=== PATIENT | male | born 1965 | race Two or more races ===

== ENCOUNTER 2016-07-18 14:50 | Emergency (ER) | payer OTHER ==
[2016-07-18 14:54] VITALS: PULSE 81; TEMP 98; BMI 27.6
[2016-07-18] MEDS ORDERED: diazePAM 2 MG TABLET PO ONE (16:07)
[2016-07-18] MEDS ORDERED: MECLIZINE HCL 25 MG TABLET (FP) PO ONE (16:07)
[2016-07-18] MEDS ORDERED: MECLIZINE HCL 25 MG TABLET (FP) ONE (16:11)
[2016-07-18] MEDS ORDERED: diazePAM 2 MG TABLET ONE (16:11)
[2016-07-18 16:48] LABS: BASOPHIL 0.6 % (0-2.0); EOSINOPHIL 0.3 % (0-4.5); MCH 30.4 pg (25.7-33.7); MCHC 33.7 g/dl (32.0-35.9); MEAN CELL VOLUME 90.3 fl (80-96); NEUTROPHILS 82.9 % (42.8-82.8); PLATELET COUNT 288 K/MM3 (134-434); RDW 13.3 % (11.9-15.9); WHITE BLOOD COUNT 13.3 K/mm3 (4.0-10.0)
[2016-07-18 17:00] LABS: INR 1.07 (0.82-1.09); PROTHROMBIN TIME (PATIENT) 11.8 SEC (9.98-11.88)
[2016-07-18 17:18] LABS: ANION GAP 11 (8-16); BILIRUBIN,TOTAL 0.3 mg/dL (0.2-1.0); CALCIUM 8.9 mg/dL (8.5-10.1); CO2 29 mmol/L (21-32); CREATININE 1.2 mg/dL (0.7-1.3); GLUCOSE,RANDOM 98 mg/dL (74-106); SGOT/AST 22 U/L (15-37); SGPT/ALT 45 U/L (12-78); TOT PROT 7.5 g/dl (6.4-8.2)
--- NOTE | 2016-07-18 17:18 | PDOC ---
History of Present Illness - General History Source: Patient Exam Limitations: No Limitations - History of Present Illness Initial Comments: 07/18/16 17:18 Patient is a 51-year-old male with no significant medical history who presents to the ED with dizziness since today. Patient notes that he was at the gym today training as he started to experiencing dizziness as he describes his head was spinning. He notes that he felt as if he was about to faint. He notes that he had a cold for a couple of days but denies any fever. He states that the people at gym called EMS. He notes that his dizziness is alleviated by lying down. He states that he has been experiencing chills and nausea. answerer [id number] used to obtain HPI. <Davida Mathis - Last Filed: 07/18/16 18:47> <Castro Cabrera - Last Filed: 07/18/16 18:56> - General Chief Complaint: Lightheaded Stated Complaint: DIZZINESS Past History <Davida Mathis - Last Filed: 07/18/16 18:47> - Psycho/Social/Smoking Cessation Hx Anxiety: No Suicidal Ideation: No Smoking History: Never smoked Have you smoked in the past 12 months: No Hx Alcohol Use: No Drug/Substance Use Hx: No Substance Use Type: None <Castro Cabrera - Last Filed: 07/18/16 18:56> - Past Medical History Allergies/Adverse Reactions: Allergies Allergy/AdvReac Type Severity Reaction Status Date / Time No Known Allergies Allergy Verified 07/18/16 14:52 Home Medications: Ambulatory Orders Meclizine HCl [Antivert -] 25 mg PO QID #28 tablet 07/18/16 Review of Systems - Review of Systems Able to Perform ROS?: Yes Comments:: 07/18/16 17:19 GENERAL/CONSTITUTIONAL: No fever or chills. No weakness. HEAD, EYES, EARS, NOSE AND THROAT: No change in vision. No ear pain or discharge. No sore throat. CARDIOVASCULAR: No chest pain or shortness of breath. RESPIRATORY: No cough, wheezing, or hemoptysis. GASTROINTESTINAL: +nausea. No vomiting, diarrhea or constipation. GENITOURINARY: No dysuria, frequency, or change in urination. MUSCULOSKELETAL: No joint or muscle swelling or pain. No neck or back pain. SKIN: No rash NEUROLOGIC: +dizziness. No headache, vertigo, loss of consciousness, or change in strength/sensation. ENDOCRINE: No increased thirst. No abnormal weight change. HEMATOLOGIC/LYMPHATIC: No anemia, easy bleeding, or history of blood clots. ALLERGIC/IMMUNOLOGIC: No hives or skin allergy. <Davida Mathis - Last Filed: 07/18/16 18:47> *Physical Exam - Vital Signs Last Vital Signs Temp Pulse Resp BP Pulse Ox 98.0 F 81 18 104/80 100 07/18/16 14:53 07/18/16 14:53 07/18/16 14:53 07/18/16 14:53 07/18/16 14:53 - Physical Exam Comments: 07/18/16 17:20 GENERAL: Awake, alert, and fully oriented, in no acute distress HEAD: No signs of trauma EYES: PERRLA, EOMI, sclera anicteric, conjunctiva clear ENT: Auricles normal inspection, hearing grossly normal, nares patent, oropharynx clear without exudates. Moist mucosa NECK: Normal ROM, supple, no lymphadenopathy, JVD, or masses LUNGS: Breath sounds equal, clear to auscultation bilaterally. No wheezes, and no crackles HEART: Regular rate and rhythm, normal S1 and S2, no murmurs, rubs or gallops ABDOMEN: Soft, nontender, normoactive bowel sounds. No guarding, no rebound. No masses EXTREMITIES: Normal range of motion, no edema. No clubbing or cyanosis. No cords, erythema, or tenderness NEUROLOGICAL: Cranial nerves II through XII grossly intact. Normal speech, normal gait SKIN: Warm, Dry, normal turgor, no rashes or lesions noted. <Davida Mathis - Last Filed: 07/18/16 18:47> - Vital Signs Last Vital Signs Temp Pulse Resp BP Pulse Ox 98.0 F 81 18 104/80 100 07/18/16 14:53 07/18/16 14:53 07/18/16 14:53 07/18/16 14:53 07/18/16 14:53 <Castro Cabrera - Last Filed: 07/18/16 18:56> Heart Score/ECG Review #1 07/18/16 17:[address] Cabrera Impression: Normal sinus rhythm Incomplete right bundle branch block Normal EKG Vent rate 59 bpm <Davida Mathis - Last Filed: 07/18/16 18:47> ED Treatment Course - LABORATORY CBC & Chemistry Diagram: 07/18/16 16:09 07/18/16 16:09 - RADIOLOGY Radiology Studies Ordered: 07/18/16 18:47 EXAM#: TYPE/EXAM: RESULT: [id number] RAD/CHEST PA LAT The heart size is within normal limits. The lung de leon are free of pulmonary infiltrates or pleural effusions. There is tortuosity and calcification of the thoracic aorta and degenerative changes of the thoracic spine. IMPRESSION: No acute disease. - Medications Given in the ED: ED Medications Discontinued Medications Generic Name Dose Route Start Last Admin Trade Name Freq PRN Reason Stop Dose Admin Diazepam 2 mg 07/18/16 16:07 07/18/16 16:26 Valium - PO 07/18/16 16:08 2 mg ONCE ONE Administration Meclizine HCl 50 mg 07/18/16 16:07 07/18/16 16:26 Antivert - PO 07/18/16 16:08 50 mg ONCE ONE Administration <Davida Mathis - Last Filed: 07/18/16 18:47> - LABORATORY CBC & Chemistry Diagram: 07/18/16 16:09 07/18/16 16:09 - RADIOLOGY Radiology Studies Ordered: Category Date Time Status CHEST PA & LAT [RAD] Stat Radiology 07/18/16 16:07 Taken - Medications Given in the ED: ED Medications Discontinued Medications Generic Name Dose Route Start Last Admin Trade Name Freq PRN Reason Stop Dose Admin Diazepam 2 mg 07/18/16 16:07 07/18/16 16:26 Valium - PO 07/18/16 16:08 2 mg ONCE ONE Administration Meclizine HCl 50 mg 07/18/16 16:07 07/18/16 16:26 Antivert - PO 07/18/16 16:08 50 mg ONCE ONE Administration <Castro Cabrera - Last Filed: 07/18/16 18:56> Medical Decision Making - Medical Decision Making 07/18/16 17:18 Patient is a 51-year-old male with no significant medical history who presents to the ED with dizziness since today. Will order labs and imaging. Patient will be reassessed after the results are back. <Davida Mathis - Last Filed: 07/18/16 18:47> *DC/Admit/Observation/Transfer - Attestations Scribe Attestion: 07/18/16 17:21 Documentation prepared by WAQAS Duarte, acting as claim review medical director for Castro Cabrera MD/. <Davida Mathis - Last Filed: 07/18/16 18:47> - Attestations Physician Attestion: 07/18/16 17:18 I, Dr. Castro Cabrera, attest that this document has been prepared under my direction and personally reviewed by me in its entirety. I further attest, that it accurately reflects all work, treatment, procedures and medical decision -making performed by me. <Castro Cabrera - Last Filed: 07/18/16 18:56> Diagnosis at time of Disposition: Vertigo - Referrals Referrals: Kiran Bettencourt [Primary Care Provider] - - Patient Instructions Printed Discharge Instructions: DI for Vertigo, DI for Meniere's Disease Additional Instructions: Carlos- This is vertigo. Move your head and change positions carefully. Do not drive. Use the antivert(meclazine) to help with the spinning. Follow up with your regular doctor this week. Return to us if problems. Best- Dr. Castro Cabrera
[2016-07-18 17:20] LABS: ALK PHOS 72 U/L (45-117); TROPONIN I < 0.02 ng/ml (0.00-0.05)
[2016-07-18 17:29] VITALS: BP 131/88
--- NOTE | 2016-07-19 17:49 | EKG ---
Test Reason : Blood Pressure : / mmHG Vent. Rate : 091 BPM Atrial Rate : 091 BPM P-R Int : 152 ms QRS Dur : 102 ms QT Int : 354 ms P-R-T Axes : 042 -53 027 degrees QTc Int : 435 ms NORMAL SINUS RHYTHM POSSIBLE LEFT ATRIAL ENLARGEMENT LEFT AXIS DEVIATION INCOMPLETE RIGHT BUNDLE BRANCH BLOCK ABNORMAL ECG NO PREVIOUS ECGS AVAILABLE Confirmed by FARA VILLEGAS MD ([id number]) on 07/19/2016 5:48:46 PM Referred By: Confirmed By:FARA VILLEGAS MD
== END 2016-07-18 19:20 | disposition home or self-care (01) ==
LOC: JER 14:50
DX: R42 Dizziness and giddiness (principal)
CPT/HCPCS: 36415; 71020-TC; 80053; 82550; 82553; 84484; 85025; 85610; 93005; 93010; 99283-25

== ENCOUNTER 2016-09-08 16:08 | Emergency (ER) | payer OTHER ==
[2016-09-08 16:19] VITALS: BMI 27.9
--- NOTE | 2016-09-08 16:37 | PDOC ---
History of Present Illness <Castro Cabrera - Last Filed: 09/08/16 18:20> - History of Present Illness Initial Comments: 09/08/16 16:44 The patient is a 51 year old male with no past medical hx who presents to the ED complaining of vomiting and diarrhea for 2 days. He reports diffuse abdominal pain. The patients reports he is unable to keep any food down secondary to his symptoms. The patient reports he has not taken any OTC medications for his symptoms. The patient denies chest pain, SOB, fever, chills, dysuria <Marissa Duarte - Last Filed: 09/08/16 18:29> - General Chief Complaint: Vomiting/Diarrhea Stated Complaint: VOMITING/DIARRHEA Time Seen by Provider: 09/08/16 16:35 Past History - Past Medical History Other medical history: denies - Immunization History Immunization Up to Date: Yes - Psycho/Social/Smoking Cessation Hx Anxiety: No Suicidal Ideation: No Smoking History: Never smoked Have you smoked in the past 12 months: No Hx Alcohol Use: No Drug/Substance Use Hx: No Substance Use Type: None <Castro Cabrera - Last Filed: 09/08/16 18:20> <Marissa Duarte - Last Filed: 09/08/16 18:29> - Past Medical History Allergies/Adverse Reactions: Allergies Allergy/AdvReac Type Severity Reaction Status Date / Time No Known Allergies Allergy Verified 09/08/16 16:16 Home Medications: Ambulatory Orders Loperamide HCl [Imodium -] 2 mg PO BID #14 capsule 09/08/16 Loperamide HCl [Imodium A-D] 2 mg PO TID PRN #12 capsule 09/08/16 Ondansetron [Ondansetron Odt] 8 mg PO TID PRN #12 tab.rapdis 09/08/16 Ondansetron [Zofran Odt -] 4 mg SL TID #21 od.tablet 09/08/16 Review of Systems - Review of Systems Able to Perform ROS?: Yes Comments:: 09/08/16 16:44 GENERAL/CONSTITUTIONAL: No fever or chills. No weakness. HEAD, EYES, EARS, NOSE AND THROAT: No change in vision. No ear pain or discharge. No sore throat. CARDIOVASCULAR: No chest pain or shortness of breath. RESPIRATORY: No cough, wheezing, or hemoptysis. GASTROINTESTINAL: +Nausea, vomiting, diarrhea. No constipation. GENITOURINARY: No dysuria, frequency, or change in urination. MUSCULOSKELETAL: No joint or muscle swelling or pain. No neck or back pain. SKIN: No rash NEUROLOGIC: No headache, vertigo, loss of consciousness, or change in strength/ sensation. ENDOCRINE: No increased thirst. No abnormal weight change. HEMATOLOGIC/LYMPHATIC: No anemia, easy bleeding, or history of blood clots. ALLERGIC/IMMUNOLOGIC: No hives or skin allergy. <Marissa Duarte - Last Filed: 09/08/16 18:29> *Physical Exam - Vital Signs Last Vital Signs Temp Pulse Resp BP Pulse Ox 98.5 F 97 H 20 112/64 97 09/08/16 16:16 09/08/16 16:16 09/08/16 16:16 09/08/16 16:16 09/08/16 16:16 <Castro Cabrera - Last Filed: 09/08/16 18:20> - Vital Signs Last Vital Signs Temp Pulse Resp BP Pulse Ox 98.5 F 97 H 20 112/64 97 09/08/16 16:16 09/08/16 16:16 09/08/16 16:16 09/08/16 16:16 09/08/16 16:16 - Physical Exam Comments: 09/08/16 16:45 GENERAL: Awake, alert, and fully oriented, in no acute distress HEAD: No signs of trauma EYES: PERRLA, EOMI, sclera anicteric, conjunctiva clear ENT: Auricles normal inspection, hearing grossly normal, nares patent, oropharynx clear without exudates. Moist mucosa NECK: Normal ROM, supple, no lymphadenopathy, JVD, or masses LUNGS: Breath sounds equal, clear to auscultation bilaterally. No wheezes, and no crackles HEART: Regular rate and rhythm, normal S1 and S2, no murmurs, rubs or gallops ABDOMEN: Soft, nontender, normoactive bowel sounds. No guarding, no rebound. No masses EXTREMITIES: Normal range of motion, no edema. No clubbing or cyanosis. No cords, erythema, or tenderness NEUROLOGICAL: Cranial nerves II through XII grossly intact. Normal speech, normal gait SKIN: Warm, Dry, normal turgor, no rashes or lesions noted. <Marissa Duarte - Last Filed: 09/08/16 18:29> ED Treatment Course - LABORATORY CBC & Chemistry Diagram: 09/08/16 17:00 09/08/16 17:00 <Castro Cabrera - Last Filed: 09/08/16 18:20> - LABORATORY CBC & Chemistry Diagram: 09/08/16 17:00 09/08/16 17:00 - RADIOLOGY Radiograph Interpretation: 09/08/16 18:12 XRAY ABDOMEN FLAT UPRIGHT Vomiting. X-ray of the abdomen supine and upright. The bowel gas pattern is nonobstructive. There is paucity of air in the small bowel loops suggestive of fluid-filled bowel loops. Multiple short air-fluid levels in the ascending and proximal transverse colon suggestive of fluid-filled colon. Does the patient have diarrhea? No gross organomegaly or free air is seen. Visualized osseous structures appear intact. Impression See discussion above Reported By: August Hough MD 09/08/16 1801 <Marissa Duarte - Last Filed: 09/08/16 18:29> Medical Decision Making - Medical Decision Making 09/08/16 18:29 The patient is a 51 year old male with no past medical hx who presents to the ED complaining of vomiting and diarrhea for 2 days. The plan is to order labs. The patient can be discharged with a prescription for his symptoms. The patient understands and agrees with the plan for discharge. All questions answered. <Marissa Duarte - Last Filed: 09/08/16 18:29> *DC/Admit/Observation/Transfer - Discharge Dispostion Admit: No - Attestations Physician Attestion: 09/08/16 16:35 I, Dr. Castro Cabrera, attest that this document has been prepared under my direction and personally reviewed by me in its entirety. I further attest, that it accurately reflects all work, treatment, procedures and medical decision -making performed by me. <Castro Cabrera - Last Filed: 09/08/16 18:20> - Attestations Scribe Attestion: 09/08/16 16:44 Documentation prepared by Marissa Duarte, acting as medical office rep for Castro Cabrera MD/. <Marissa Duarte - Last Filed: 09/08/16 18:29> Diagnosis at time of Disposition: Viral gastroenteritis - Discharge Dispostion Disposition: HOME Condition at time of disposition: Good - Prescriptions Prescriptions: Loperamide HCl [Imodium -] 2 mg PO BID #14 capsule Loperamide HCl [Imodium A-D] 2 mg PO TID PRN #12 capsule PRN Reason: Diarrhea Ondansetron [Ondansetron Odt] 8 mg PO TID PRN #12 tab.rapdis PRN Reason: Nausea Ondansetron [Zofran Odt -] 4 mg SL TID #21 od.tablet - Referrals Referrals: Kiran Bettencourt [Primary Care Provider] - - Patient Instructions Printed Discharge Instructions: DI for Viral Gastroenteritis -- Adult Print Language: YORUBA
[2016-09-08 17:08] LABS: BASOPHIL 0.2 % (0-2.0); EOSINOPHIL 0.3 % (0-4.5); MCH 31.5 pg (25.7-33.7); MCHC 34.8 g/dl (32.0-35.9); MEAN CELL VOLUME 90.5 fl (80-96); MEAN PLT VOLUME 9.6 fl (7.5-11.1); NEUTROPHILS 78.7 % (42.8-82.8); PLATELET COUNT 252 K/MM3 (134-434); RDW 13.1 % (11.9-15.9); WHITE BLOOD COUNT 6.8 K/mm3 (4.0-10.0)
[2016-09-08 17:39] LABS: ALBUMIN 4.2 g/dl (3.4-5.0); CALCIUM 8.7 mg/dL (8.5-10.1); CREATININE 1.3 mg/dL (0.7-1.3)
[2016-09-08 17:42] LABS: BILIRUBIN,TOTAL 0.4 mg/dL (0.2-1.0); TOT PROT 7.8 g/dl (6.4-8.2)
[2016-09-08 18:12] LABS: URINE APPEARANCE CLEAR; URINE BLOOD NEGATIVE (NEGATIVE); URINE COLOR AMBER; URINE GLUCOSE (UA) NEGATIVE (NEGATIVE); URINE KETONE TRACE (NEGATIVE); URINE LEUK ESTERASE NEGATIVE (NEGATIVE); URINE NITRITE NEGATIVE (NEGATIVE); URINE UROBILINOGEN NEGATIVE E.U./dl (0.2-1.0)
[2016-09-08 18:27] LABS: URINE PROTEIN 2+ (NEGATIVE)
[2016-09-08 18:31] LABS: URINE HYALINE CAST 20 /lpf; URINE MUCUS MANY; URINE RBC 2 /hpf (0-3); URINE WBC 3 /hpf (3-5)
[2016-09-08 18:34] VITALS: BP 126/73; PULSE 78; TEMP 98.7
[2016-09-08 19:28] LABS: PLATELET ESTIMATE ADEQUATE (NORMAL)
== END 2016-09-08 18:34 | disposition home or self-care (01) ==
LOC: JER 16:08
DX: A08.4 Viral intestinal infection, unspecified (principal)
CPT/HCPCS: 36415; 74020-TC; 80053; 81003; 81015; 83690; 85025; 99283-25

== ENCOUNTER 2016-09-25 08:10 | Emergency (ER) | payer OTHER ==
[2016-09-25 08:17] VITALS: BP 139/98; PULSE 82; TEMP 98.3; BMI 27.7
--- NOTE | 2016-09-25 10:57 | PDOC ---
[id number] Initial Comments: 09/25/16 10:56 CHIEF COMPLAINT: abscess to buttock HISTORY OF PRESENT ILLNESS: 51 yo M with no significant PMH presents to fast track with abscess to buttocks x 1 week. Patient states he was seen by his primary care doctor 3 days ago and given antibiotics (unsure what kind); however he has experienced no relief and the pain has worsened. Patient denies any fever, chills, nausea, vomiting, diarrhea. No recent travel or sick contacts. PAST MEDICAL HISTORY: Denies past medical history FAMILY HISTORY: Denies SOCIAL HISTORY: Denies tobacco, alcohol, illicit drug use. SURGICAL HISTORY: Denies ALLERGIES: No known drug allergies REVIEW OF SYSTEMS General/Constitutional: Denies fever or chills. Denies weakness, weight change. HEENT: Denies change in vision. Denies ear pain or discharge. Denies sore throat. Cardiovascular: Denies chest pain or shortness of breath. Respiratory: Denies cough, wheezing, or hemoptysis. Gastrointestinal: Denies nausea, vomiting, diarrhea or constipation. Denies rectal bleeding. Genitourinary: Denies dysuria, frequency, or change in urination. Musculoskeletal: Denies joint or muscle swelling or pain. Denies neck or back pain. Skin and breasts: Abscess to left buttock. Denies rash or easy bruising. PHYSICAL EXAM General Appearance: Well-appearing, appropriately dressed. No apparent distress , no intoxication. Respiratory/Chest: Lungs CTAB. Cardiovascular: RRR. S1, S2. Musculoskeletal/Extremities: Normal inspection. FROM of all extremities, normal capillary refill. No tenderness to extremities, pedal edema, swelling, erythema or deformity. Integumentary: 3cm x 2 cm indurated perianal abscess to left buttock. Appropriate color, dry, warm. No cyanosis, erythema, jaundice or rash Neurologic: plater production II-XII intact. Fully oriented, alert. Appropriate mood/affect. Motor strength 5/5. No appreciable EOM palsy, facial droop or sensory deficit. 09/25/16 11:33 <Katherine Weston - Last Filed: 10/09/16 19:59> - General Chief Complaint: Abscess Boil Stated Complaint: ABCESS BOIL, PAIN Time Seen by Provider: 09/25/16 08:30 Past History <Joy Lamar - Last Filed: 09/25/16 15:00> - Past Medical History Other medical history: NONE - Immunization History Immunization Up to Date: Yes - Psycho/Social/Smoking Cessation Hx Anxiety: No Suicidal Ideation: No Smoking History: Never smoked Have you smoked in the past 12 months: No Hx Alcohol Use: No Drug/Substance Use Hx: No Substance Use Type: None <Katherine Weston - Last Filed: 10/09/16 19:59> - Past Medical History Allergies/Adverse Reactions: Allergies Allergy/AdvReac Type Severity Reaction Status Date / Time No Known Allergies Allergy Verified 09/25/16 08:17 Home Medications: Ambulatory Orders Acetaminophen [Tylenol -] 1,000 mg PO TID PRN #100 tablet 09/25/16 Clindamycin [Cleocin -] 600 mg PO Q6H #40 capsule 09/25/16 *Physical Exam - Vital Signs Last Vital Signs Temp Pulse Resp BP Pulse Ox 98.3 F 82 20 139/98 98 09/25/16 08:14 09/25/16 08:14 09/25/16 08:14 09/25/16 08:14 09/25/16 08:14 <Joy Lamar - Last Filed: 09/25/16 15:00> - Vital Signs Last Vital Signs Temp Pulse Resp BP Pulse Ox 98.3 F 82 20 139/98 98 09/25/16 08:14 09/25/16 08:14 09/25/16 08:14 09/25/16 08:14 09/25/16 08:14 <Katherine Weston - Last Filed: 10/09/16 19:59> Procedures - Incision and Drainage I&D Site: Left: Buttock Betadine cleansed: Yes Anesthesia: 1% Lidocaine Volume(ml): 6 Blade Size: 11 Attempts: 1 Iodinated Packin in (5 cm) Dressing: Yes (dry gauze dressing) Progress: 09/25/16 10:58 3 cm x 2 cm abscess incised and drained after cleansing with betadine solution. Irrigated with high pressure saline. Packed with xeroform dressing. No complications. <Katherine Weston - Last Filed: 10/09/16 19:59> ED Treatment Course - RADIOLOGY Radiology Studies Ordered: Category Date Time Status PELVIS CT WITHOUT CONTRAST [CT] Stat CT Scan 09/25/16 09:21 Completed <Katherine Weston - Last Filed: 10/09/16 19:59> Medical Decision Making - Medical Decision Making 09/25/16 10:59 51 yo M with no significant PMH presents to fast track with abscess to L buttock. -CT to r/o fistula No fistula appreciated on CT. I&D performed, no complications. Wound cultures sent. -Clindamycin 300 mg QID po Advised patient to take medications as prescribed, keep area clean and dry for 24-48 hours, and return in 48 hours for wound check/packing removal. Advised patient of signs and symptoms for return to ER; patient verbalized understanding and agrees to plan. <TristaKatherine - Last Filed: 10/09/16 19:59> *DC/Admit/Observation/Transfer - Attestations Physician Attestion: Called to bedside to evaluate patient for buttock abscess, as it was close to the rectum. Pt examined, there is an erythematous fluctuant lesion to the L buttock. Will obtain CT pelvis to evaluate for depth and proximity to any important structures. If safe to do so, will perform I&D. <Joy Lamar - Last Filed: 09/25/16 15:00> - Discharge Dispostion Admit: No <Will Westonika - Last Filed: 10/09/16 19:59> Diagnosis at time of Disposition: Abscess of buttock, left - Discharge Dispostion Disposition: HOME Condition at time of disposition: Stable - Prescriptions Prescriptions: Clindamycin [Cleocin -] 600 mg PO Q6H #40 capsule Acetaminophen [Tylenol -] 1,000 mg PO TID PRN #100 tablet PRN Reason: Pain - Referrals Referrals: Kiran Bettencourt [Primary Care Provider] - - Patient Instructions Printed Discharge Instructions: DI for Incision and Drainage of a Skin Abscess Additional Instructions: Please take medication as prescribed. As discussed, please keep the area clean and dry for 24-48 hours, you may wash with mild soap after. You must return in 48 hours to recheck the wound site and/or to remove the dressing. As discussed , if you experience any fever, nausea, vomiting, diarrhea, or any new or worsening symptoms, please return to the ER. Por favor, tome la medicacin segn lo prescrito. Touchet discutido, mantenga el greta limpia y seca karina 24-48 horas, despues usted puede lavarse con jabn suave. Debe regresar en 48 horas para volver a revisar el sitio de la herida y / o retirar el vendaje. Touchet se discuti, si experimenta fiebre, nuseas, v mitos, diarrea o cualquier sntoma nuevo o que empeora, por favor regrese a la anita de emergencias. Print Language: LUXEMBOURGER
== END 2016-09-25 11:14 | disposition home or self-care (01) ==
LOC: JERFT 08:10
DX: Z48.01 Encounter for change or removal of surgical wound dressing (principal)
CPT/HCPCS: 72192-TC; 87070; 87186; 87205; 99282-25

== ENCOUNTER 2016-09-27 10:24 | Emergency (ER) | payer OTHER ==
[2016-09-27 10:31] VITALS: BP 132/84; PULSE 83; TEMP 98; BMI 28.5
--- NOTE | 2016-09-27 11:22 | PDOC ---
History of Present Illness - General Chief Complaint: Revisit,Wound Recheck Stated Complaint: FOLLOW-UP Time Seen by Provider: 09/27/16 11:17 History Source: Patient Exam Limitations: No Limitations - History of Present Illness Initial Comments: 09/27/16 11:22 CHIEF COMPLAINT: Wound check HISTORY OF PRESENT ILLNESS: This is an otherwise healthy 51 year old male seen here on 09/25 for I&D of perianal abscess. Pelvis CT was done at that time with no clear evidence of fistula. Since the I&D, he has had improvement in pain. He denies fevers/chill, difficulty with defecation, or any other symptoms. He is taking Clindamycin. Wound culture is growing MSSA. Vital signs on arrival are unremarkable. REVIEW OF SYSTEMS: GENERAL/CONSTITUTIONAL: No fever or chills. No weakness. No weight change. GASTROINTESTINAL: No nausea, vomiting, diarrhea or constipation. SKIN: See HPI. ALLERGIC/IMMUNOLOGIC: No hives or skin allergy. No latex allergy. PHYSICAL EXAM: GENERAL: The patient is awake, alert, and fully oriented, in no acute distress. ABDOMEN: Soft, non-distended, non-tender. PSYCH:Normal mood, normal affect. SKIN: Left buttock wound site with packing in place, minimal drainage, no fluctuance or erythema. Past History - Past Medical History Allergies/Adverse Reactions: Allergies Allergy/AdvReac Type Severity Reaction Status Date / Time No Known Allergies Allergy Verified 09/25/16 08:17 Home Medications: Ambulatory Orders Acetaminophen [Tylenol -] 1,000 mg PO TID PRN #100 tablet 09/25/16 Clindamycin [Cleocin -] 600 mg PO Q6H #40 capsule 09/25/16 Other medical history: PATIENT DENIES MEDICAL HISTORY - Immunization History Immunization Up to Date: Yes - Psycho/Social/Smoking Cessation Hx Anxiety: No Suicidal Ideation: No Smoking History: Never smoked Have you smoked in the past 12 months: No Hx Alcohol Use: No Drug/Substance Use Hx: No Substance Use Type: None *Physical Exam - Vital Signs Last Vital Signs Temp Pulse Resp BP Pulse Ox 98.0 F 83 18 132/84 96 09/27/16 10:29 09/27/16 10:29 09/27/16 10:29 09/27/16 10:29 09/27/16 10:29 Medical Decision Making - Medical Decision Making 09/27/16 11:33 A/P: 51 year old male presenting for packing removal. -Packing removed -Patient to continue abx -Will follow up with PCP in one week -Return precautions reviewed *DC/Admit/Observation/Transfer Diagnosis at time of Disposition: Wound check, abscess - Discharge Dispostion Disposition: HOME Condition at time of disposition: Guarded Admit: No - Referrals Referrals: Kiran Bettencourt [Primary Care Provider] - 1 week - Patient Instructions Printed Discharge Instructions: How to Care for a Surgical Wound Additional Instructions: -Sigue con antibioticos -Llama a arnold doctor para ольга juhi in ольга semana -Regrese aqui si tiene fiebre/escalos frios, dolor peorando, o algunos otro symptomas preocupandos - Post Discharge Activity Work/School Note: Back to Work
[2016-09-27] MEDS ORDERED: IBUPROFEN 600 MG TABLET (FP) PO ONE (11:25)
== END 2016-09-27 11:33 | disposition home or self-care (01) ==
LOC: JERFT 10:24
DX: Z48.01 Encounter for change or removal of surgical wound dressing (principal)
CPT/HCPCS: 99281-25

== ENCOUNTER 2017-01-17 14:28 | Emergency (ER) | payer OTHER ==
[2017-01-17 14:38] VITALS: BP 112/70; PULSE 93; TEMP 98.1; BMI 33.9
[2017-01-17] MEDS ORDERED: ONDANSETRON 4 MG/2 ML VIAL IVPUSH ONE (16:14)
[2017-01-17] MEDS ORDERED: PANTOPRAZOLE SODIUM 40 MG in SODIUM CHLORIDE 100 ML IVPB ONE (16:14)
[2017-01-17] MEDS ORDERED: SODIUM CHLORIDE 1,000 ML IV STA (16:14)
[2017-01-17] MEDS ORDERED: ONDANSETRON 4 MG/2 ML VIAL ONE (16:29)
[2017-01-17] MEDS ORDERED: PANTOPRAZOLE SODIUM 40 MG VIAL ONE (16:29)
--- NOTE | 2017-01-17 16:59 | PDOC ---
History of Present Illness - General Chief Complaint: Vomiting/Diarrhea Stated Complaint: ABD PAIN,VOMITING Time Seen by Provider: 01/17/17 15:28 History Source: Patient Exam Limitations: No Limitations - History of Present Illness Travel History: No Initial Comments: 01/17/17 16:03 51-year-old male with no past medical history presents to the ED with complaints of nausea vomiting diarrhea and upper abdominal pain since 10 AM this morning. Patient states was started on doxycycline yesterday for folliculitis to his lower umbilical region. Patient states has not taken the medication before and on short of the side effect versus disease process. Patient denies dysuria, back pain, chest pain, shortness of breath, weakness, or dizziness. Timing/Duration: reports: intermittent Quality: reports: mild, burning, cramping Abdominal Pain Onset Location: reports: epigastric Pain Radiation: reports: no radiation Activities at Onset: reports: none Aggravating Factors: improves with: None Alleviating Factors: improves with: None Past History - Travel Traveled outside of the country in the last 30 days: No Close contact w/someone who was outside of country & ill: No - Past Medical History Allergies/Adverse Reactions: Allergies Allergy/AdvReac Type Severity Reaction Status Date / Time No Known Allergies Allergy Verified 01/17/17 14:32 Home Medications: Ambulatory Orders Acetaminophen [Tylenol -] 1,000 mg PO TID PRN #100 tablet 09/25/16 Clindamycin [Cleocin -] 600 mg PO Q6H #40 capsule 09/25/16 - Immunization History Immunization Up to Date: Yes - Psycho/Social/Smoking Cessation Hx Anxiety: No Suicidal Ideation: No Smoking History: Never smoked Have you smoked in the past 12 months: No Information on smoking cessation initiated: No Hx Alcohol Use: No Drug/Substance Use Hx: No Substance Use Type: None Patient Lives Alone: No Lives with/in: spouse/SO Review of Systems - Review of Systems Able to Perform ROS?: Yes Constitutional: No: Symptoms Reported HEENTM: No: Symptoms Reported Respiratory: No: Symptoms reported Cardiac (ROS): No: Symptoms Reported ABD/GI: Yes: Diarrhea, Nausea, Vomiting, Indigestion, Abdominal cramping : No: Symptoms Reported Musculoskeletal: No: Symptoms Reported Integumentary: No: Symptoms Reported Neurological: No: Symptoms reported Endocrine: No: Symptoms Reported Hematologic/Lymphatic: No: Symptoms Reported *Physical Exam - Vital Signs Last Vital Signs Temp Pulse Resp BP Pulse Ox 98.1 F 93 H 18 112/70 98 01/17/17 14:33 01/17/17 14:33 01/17/17 14:33 01/17/17 14:33 01/17/17 14:33 - Physical Exam General Appearance: Yes: Nourished, Appropriately Dressed. No: Apparent Distress HEENT: positive: Pharynx Normal Neck: positive: Supple Respiratory/Chest: positive: Lungs Clear, Normal Breath Sounds. negative: Respiratory Distress, Accessory Muscle Use Cardiovascular: positive: Regular Rhythm, Regular Rate. negative: Murmur Gastrointestinal/Abdominal: positive: Soft, Tenderness (epigastric) Extremity: positive: Normal Capillary Refill Integumentary: positive: Normal Color, Warm, Moist Neurologic: positive: Motor Strength 5/5 (ambulatory) ED Treatment Course - LABORATORY CBC & Chemistry Diagram: 01/17/17 16:26 01/17/17 16:26 - Medications Given in the ED: ED Medications Discontinued Medications Generic Name Dose Route Start Last Admin Trade Name Jorgeq PRN Reason Stop Dose Admin Pantoprazole Sodium 40 mg/ 100 mls @ 200 mls/hr 01/17/17 16:14 01/17/17 16:35 Sodium Chloride IVPB 01/17/17 16:43 200 mls/hr ONCE ONE Administration Ondansetron HCl 4 mg 01/17/17 16:14 01/17/17 16:35 Zofran Injection IVPUSH 01/17/17 16:15 4 mg ONCE ONE Administration Medical Decision Making - Medical Decision Making 01/17/17 16:36 Patient with intermittent nausea vomiting and diarrhea since 10 AM this morning associated with constant epigastric burning. Patient started on doxycycline last night for folliculitis. Patient on exam had epigastric tenderness without other acute findings. Patient will be ordered for CBC, comp, lipase, Protonix, Zofran and IV fluids. 01/17/17 17:36 Laboratory Tests 01/17/17 16:26 WBC 11.8 H D Neutrophils % 93.6 H 01/17/17 18:15 Patient states feeling better after receiving the above medication. Patient tolerated crackers and apple juice. Patient be discharged home at antibiotics will be switched to Bactrim. Laboratory Tests 01/17/17 01/17/17 16:26 16:26 WBC 11.8 H D Hgb 16.3 Hct 48.6 Neutrophils % 93.6 H Sodium 143 Potassium 4.0 Chloride 101 Carbon Dioxide 30 D Anion Gap 12 BUN 14 Creatinine 1.3 Creat Clearance w eGFR 58.43 Random Glucose 111 H Magnesium 2.4 AST 40 H ALT 62 Total Protein 8.3 H Lipase 125 *DC/Admit/Observation/Transfer Diagnosis at time of Disposition: Nausea, vomiting, and diarrhea Adverse effect of drug Qualifiers: Encounter type: initial encounter Qualified Code(s): T88.7XXA - Unspecified adverse effect of drug or medicament, initial encounter - Discharge Dispostion Disposition: HOME Condition at time of disposition: Improved - Referrals Referrals: Kiran Bettencourt [Primary Care Provider] - - Patient Instructions Printed Discharge Instructions: Nausea and Vomiting-Adult Additional Instructions: Please start Bactrim tonight and continue until completion. May take Zofran as needed for nausea. Please notify your physician that we have switched her antibiotics due to side effects.
[2017-01-17 17:23] LABS: BASOPHIL 0.1 % (0-2.0); EOSINOPHIL 0.3 % (0-4.5); MCH 30.3 pg (25.7-33.7); MCHC 33.6 g/dl (32.0-35.9); MEAN CELL VOLUME 90.2 fl (80-96); MEAN PLT VOLUME 9.3 fl (7.5-11.1); NEUTROPHILS 93.6 % (42.8-82.8); PLATELET COUNT 299 K/MM3 (134-434); RDW 13.1 % (11.9-15.9); WHITE BLOOD COUNT 11.8 K/mm3 (4.0-10.0)
[2017-01-17 17:43] LABS: ALBUMIN 4.3 g/dl (3.4-5.0); ALK PHOS 113 U/L (45-117); ANION GAP 12 (8-16); BILIRUBIN,TOTAL 0.7 mg/dL (0.2-1.0); CALCIUM 9.4 mg/dL (8.5-10.1); CO2 30 mmol/L (21-32); CREATININE 1.3 mg/dL (0.7-1.3); GLUCOSE,RANDOM 111 mg/dL (74-106); MAGNESIUM 2.4 mg/dL (1.8-2.4); SGOT/AST 40 U/L (15-37); SGPT/ALT 62 U/L (12-78); TOT PROT 8.3 g/dl (6.4-8.2)
== END 2017-01-17 18:32 | disposition home or self-care (01) ==
LOC: JER 14:28
PROC: 3E033GC Introduction of Other Therapeutic Substance into Peripheral Vein, Percutaneous Approach (ICD-10-PCS; principal; 2017-01-17)
PROC: 3E0337Z Introduction of Electrolytic and Water Balance Substance into Peripheral Vein, Percutaneous Approach (ICD-10-PCS; 2017-01-17)
DX: T88.7XXA Unspecified adverse effect of drug or medicament, initial encounter (principal); X58.XXXA Exposure to other specified factors, initial encounter; Y92.9 Unspecified place or not applicable
CPT/HCPCS: 36415; 80053; 83690; 83735; 85025; 96361; 96365; 96375; 99282-25